=== PATIENT | female | born 1980 | race Caucasian/White ===

== ENCOUNTER → 2016-12-02 | Outpatient (CLI) | payer BC ==
--- NOTE | 2016-12-02 12:37 | KCIC ---
INDICATION: Abdominal pain. TECHNIQUE: Ultrasound of the abdomen was performed. No comparison is available. FINDINGS: The visualized pancreas is unremarkable. Aorta is normal caliber. IVC is patent. With liver is normal in size and slightly increased in echogenicity. Gallbladder is absent. Common bile duct is within normal limits at 3 mm. Kidneys are without hydronephrosis or mass. Spleen is not enlarged. Patient's pain is greatest in the left lower quadrant. Scanning of the left lower quadrant demonstrates bowel gas but there is no mass lesion apparent by ultrasound. IMPRESSION: 1. No acute abdominal findings. 2. Fatty infiltration of the liver, mild. 3. Prior cholecystectomy. Electronically signed by: Prakash Medel MD (12/02/2016 12:34 PM) [id number]
== END | disposition home or self-care (01) ==
LOC: KCIC US 09:36
PROVIDERS: ATTEND Internal Medicine
DX: K76.0 Fatty (change of) liver, not elsewhere classified (principal); Z90.49 Acquired absence of other specified parts of digestive tract
CPT/HCPCS: 76700

== ENCOUNTER → 2017-09-20 | Outpatient (CLI) | payer BC | END | disposition home or self-care (01) | LOC: US 10:27 | DX: R22.42 Localized swelling, mass and lump, left lower limb (principal); Z90.49 Acquired absence of other specified parts of digestive tract | CPT/HCPCS: 76881 ==

== ENCOUNTER → 2019-08-15 | Outpatient (CLI) | payer BC, MEDICARE ==
[~2019-08-15] MED LIST: ASPI-630 PO; BIOT5000 PO; DOXY50CA PO; FAMO20TA5 PO; INSU100I13 SQ; INSU100V11 IJ; MYCO180T PO; ONDA-84 PO; OXYC5TAB2 PO; PHEN37.53 PO; SERT50TA PO; SPIR100T4 PO; TACR1TAB PO; TOPI25TA52 PO; VALG50SO PO
== END | disposition home or self-care (01) ==
LOC: LAB 14:44
PROVIDERS: ATTEND Orthopaedic Surgery
DX: Z01.818 Encounter for other preprocedural examination (principal); Z11.59 Encounter for screening for other viral diseases; M65.342 Trigger finger, left ring finger
CPT/HCPCS: U0003-CS

== ENCOUNTER → 2019-08-18 | Day surgery (SDC) | payer MEDICARE, BC ==
[~2019-08-18] VITALS: Ht 165.1 cm; Wt 80.3 kg
[~2019-08-18] MED LIST changes: +0.9 % SODIUM CHLORIDE 20 ML VIAL. IJ ONE; +BUPIVACAINE MPF 0.25% 30 ML VIAL. ONE; +DEXAMETHASONE SOD PHOS 4 MG/ML VIAL ONE; +HYDROmorphone 2 MG/ML VIAL IV PRN; +INSULIN LISPRO 100 UNIT/ML 3ML VIAL for OP,RR ONLY. SQ PRN; +IV RINGERS,LACTATED 1000ML 1,000 ML IV SCH; +KETOROLAC 30 MG/ML VIAL. ONE; +LIDOCAINE 1% Multi-Dose 20 ML VIAL. ONE; +LIDOCAINE 1% PF 2 ML VIAL. ID PRN; +LIDOCAINE 1% PF 30 ML VIAL. ONE; +LIDOCAINE 2% PF 5 ML VIAL. ONE; +MIDAZOLAM HCL/PF 2 MG/2 ML VIAL. ONE; +MORPHINE SULFATE 2 MG/ML VIAL. IV PRN; +ONDANSETRON PF 4 MG/2 ML VIAL. IV PRN; +ONDANSETRON PF 4 MG/2 ML VIAL. ONE; +PROCHLORPERAZINE 10 MG/2 ML VIAL. IV PRN; +PROPOFOL 10 MG/ML (20ML) VIAL. IV ONE; +fentaNYL PF VIAL 100 MCG/2 ML VIAL IV PRN; +fentaNYL PF VIAL 100 MCG/2 ML VIAL ONE; +oxyCODONE IR 5 MG TABLET ONE; +oxyCODONE IR 5 MG TABLET PO STA
[2019-08-18] MEDS: fentaNYL PF VIAL 100 MCG/2 ML VIAL IV PRN ×3 (08:20→08:55)
--- NOTE | 2019-08-18 08:36 | PDOC4 ---
Operative Note Operative Note Date of Procedure: August 18, 2019 Pre-Op Diagnosis: M65.342 Trigger finger, left ring finger Post-Op Diagnosis: same Procedure: left ring finger tendon sheath incision, (A1 ferny release for triggering) CPT 21715 Surgeon: Nidia Oden MD Ammunition Storekeeper: Rajat THOMPSON Anesthesia: Regional IV block ([place] Block) EBL: 10 mL Specimens Obtained: None Complications: None Drains: None Tourniquet: 23 minutes at 275 mm Hg Indications for Procedure: The patient is a 38 year old with triggering of the left ring finger. She has type 1 diabetes and history of renal transplantation. We discussed the option of cortisone injection for treatment versus proceeding with surgical release. She presented with what was apparently a locked trigger finger, and I did not feel that a cortisone injection had acceptable chance of success. I recommended surgical release of the tendon sheath, release of the A1 ferny. We discussed the potential risks of trigger finger release surgery such as persistent or recurrent triggering, stiffness, infection, nerve injury to the digital nerves which could cause permanent numbness in the affected digit, or other potential surgical or anesthetic complications. We discussed the additional risk of infection or wound healing problems due to her type 1 diabetes and due to the immunosuppression for the transplant. The patient and I discussed the risks, benefits and alternatives of surgery. All questions about surgery were answered, and she desired to proceed. A written consent was obtained. Procedure in Detail: The patient was identified in the preoperative holding area. The correct left ring finger was marked by me. The patient was taken to the operating room where regional IV block ([place] Block) anesthesia was used. The patient was positioned supine on the operating table with the arm extended on an armboard. Preoperative antibiotics were given intravenously prior to tourniquet inflation. A timeout procedure was performed. A tourniquet was used. The limb was prepared in sterile fashion with surgical prep solution. Sterile drapes were applied. The tourniquet was already inflated as part of the anesthetic. Loupe magnification (3.0x) was used throughout to prevent digital nerve or tendon injury. A transverse incision was made over the A1 ferny of the left ring finger using a 15 blade scalpel. The digital nerves were carefully retracted by my medical assistant internal medicine with Ragnell retractors to prevent nerve injury. Scissor dissection was used, and the tendon sheath and A1 ferny were identified. The 15 blade scalpel was used to perforate the tendon sheath. A tenotomy scissor was then used to release the tendon sheath proximally and distally to prevent recurrent or persistent triggering. The flexor tendon was identified, and gently retracted with a blunt hemostat to ensure complete tendon sheath release. Passive range of motion of the digit was then used, to confirm there was no further triggering. Copious saline irrigation was used. The tourniquet was released. The incision edges were injected with 0.25% bupivacaine without epinephrine. Bipolar electrocautery was used carefully for hemostasis. The incision was closed in a single layer with 3-0 Nylon sutures. Xeroform and a sterile dressing were applied. Needle and sponge counts were correct. There were no apparent complications. NIDIA ODEN MD Aug 18, 2019 08:36
[2019-08-18 08:45] VITALS: BP 129/93
== END ==
LOC: SURG 06:40
PROVIDERS: ATTEND Orthopaedic Surgery
DX: M65.342 Trigger finger, left ring finger (principal); K21.9 Gastro-esophageal reflux disease without esophagitis; E11.9 Type 2 diabetes mellitus without complications; E66.9 Obesity, unspecified; Z68.29 Body mass index [BMI] 29.0-29.9, adult; Z90.49 Acquired absence of other specified parts of digestive tract; Z87.891 Personal history of nicotine dependence; Z79.84 Long term (current) use of oral hypoglycemic drugs
CPT/HCPCS: 26055; 81025; J0696; J1100; J1885; J2250; J2405; J2704; J3010; J3490; J0690

== ENCOUNTER → 2020-01-02 | Outpatient (CLI) | payer BC, MEDICARE ==
[2019-08-18 08:45] VITALS: BP 129/93
[~2020-01-02] MED LIST changes: -0.9 % SODIUM CHLORIDE 20 ML VIAL. IJ ONE; -BUPIVACAINE MPF 0.25% 30 ML VIAL. ONE; -DEXAMETHASONE SOD PHOS 4 MG/ML VIAL ONE; -HYDROmorphone 2 MG/ML VIAL IV PRN; -INSULIN LISPRO 100 UNIT/ML 3ML VIAL for OP,RR ONLY. SQ PRN; -IV RINGERS,LACTATED 1000ML 1,000 ML IV SCH; -KETOROLAC 30 MG/ML VIAL. ONE; -LIDOCAINE 1% Multi-Dose 20 ML VIAL. ONE; -LIDOCAINE 1% PF 2 ML VIAL. ID PRN; -LIDOCAINE 1% PF 30 ML VIAL. ONE; -LIDOCAINE 2% PF 5 ML VIAL. ONE; -MIDAZOLAM HCL/PF 2 MG/2 ML VIAL. ONE; -MORPHINE SULFATE 2 MG/ML VIAL. IV PRN; -ONDANSETRON PF 4 MG/2 ML VIAL. IV PRN; -ONDANSETRON PF 4 MG/2 ML VIAL. ONE; -PROCHLORPERAZINE 10 MG/2 ML VIAL. IV PRN; -PROPOFOL 10 MG/ML (20ML) VIAL. IV ONE; -fentaNYL PF VIAL 100 MCG/2 ML VIAL IV PRN; -fentaNYL PF VIAL 100 MCG/2 ML VIAL ONE; -oxyCODONE IR 5 MG TABLET ONE; -oxyCODONE IR 5 MG TABLET PO STA
[2020-01-02 13:28] LABS: BASO % 1 % (0-3); EOS % 0 % (0-3); HEMATOCRIT 32.2 % (36.0-47.0); HEMOGLOBIN 10.9 g/dL (12.0-15.5); LYMPH # 0.8 x10^3/uL (1.0-4.8); LYMPH % 29 % (24-48); MEAN CORPUSCULAR HEMOGLOBIN 33 pg (25-35); MEAN CORPUSCULAR HGB CONC 34 g/dL (31-37); MEAN CORPUSCULAR VOLUME 99 fL (79-100); MONO # 0.1 x10^3/uL (0.0-1.1); MONO % 3 % (0-9); NEUT % 67 % (31-73); PLATELET COUNT 131 x10^3/uL (140-400); RED BLOOD COUNT 3.26 x10^6/uL (3.50-5.40); RED CELL DISTRIBUTION WIDTH 15.8 % (11.5-14.5); WHITE BLOOD COUNT 2.9 x10^3/uL (4.0-11.0)
[2020-01-02 13:41] LABS: BILIRUBIN,URINE NEGATIVE (NEG); CLARITY,URINE CLEAR; COLOR,URINE YELLOW; NITRITE,URINE NEGATIVE (NEG); PROTEIN,URINE NEGATIVE (NEG-TRACE); UROBILINOGEN,URINE 0.2 mg/dL (0.2 mg/dL)
[2020-01-02 13:54] LABS: BACTERIA,URINE MODERATE /HPF (0-FEW); CREATININE,RANDOM URINE 200.6 mg/dL (Not Establ.); RBC,URINE 0 /HPF (0-2); YEAST,URINE PRESENT /HPF
[2020-01-02 13:57] LABS: ALBUMIN 3.6 g/dL (3.4-5.0); CALCIUM 9.1 mg/dL (8.5-10.1); CREATININE 1.3 mg/dL (0.6-1.0); GFR 45.8; MAGNESIUM 1.4 mg/dL (1.8-2.4); PHOSPHORUS 3.7 mg/dL (2.6-4.7); POTASSIUM 5.4 mmol/L (3.5-5.1); TOTAL BILIRUBIN 0.7 mg/dL (0.2-1.0); TOTAL PROTEIN 7.1 g/dL (6.4-8.2); URIC ACID 5.4 mg/dL (2.6-6.0)
== END ==
LOC: LAB 12:22
PROVIDERS: ATTEND Specialist
DX: Z79.899 Other long term (current) drug therapy (principal); Z94.0 Kidney transplant status; D84.9 Immunodeficiency, unspecified
CPT/HCPCS: 80053; 80197; 81001; 82570; 83735; 84100; 84156; 84550; 85025; 87086; 87497

== ENCOUNTER → 2020-10-21 | Outpatient (CLI) | payer OTHER ==
[2019-08-18 08:45] VITALS: BP 129/93
== END ==
LOC: ER 10:34
PROVIDERS: ATTEND Internal Medicine Pulmonary Disease
DX: R05 Cough (principal); R51.9 Headache, unspecified; J02.9 Acute pharyngitis, unspecified; R09.89 Other specified symptoms and signs involving the circulatory and respiratory systems; Z20.822 Contact with and (suspected) exposure to COVID-19
CPT/HCPCS: 87426; U0003; U0005

== ENCOUNTER → 2020-11-29 | Outpatient (CLI) | payer OTHER ==
[2019-08-18 08:45] VITALS: BP 129/93
== END ==
LOC: LAB 15:44
PROVIDERS: ATTEND Internal Medicine Pulmonary Disease
DX: Z20.822 Contact with and (suspected) exposure to COVID-19 (principal)
CPT/HCPCS: U0003; U0005

== ENCOUNTER → 2021-03-05 | Outpatient (CLI) | payer OTHER ==
[2019-08-18 08:45] VITALS: BP 129/93
== END ==
LOC: LAB 10:30
PROVIDERS: ATTEND Internal Medicine Pulmonary Disease
DX: Z20.822 Contact with and (suspected) exposure to COVID-19 (principal)
CPT/HCPCS: U0003; U0005

== ENCOUNTER → 2021-03-07 | Outpatient (CLI) | payer OTHER ==
[2019-08-18 08:45] VITALS: BP 129/93
== END ==
LOC: LAB 09:38
PROVIDERS: ATTEND Internal Medicine Pulmonary Disease
DX: R51.9 Headache, unspecified (principal); J02.9 Acute pharyngitis, unspecified; R09.81 Nasal congestion; Z20.822 Contact with and (suspected) exposure to COVID-19
CPT/HCPCS: U0003; U0005